=== PATIENT | male | born 1990 | race Caucasian/White ===

== ENCOUNTER 2017-11-03 12:28 | Emergency (ER) | payer OTHER ==
[~2017-11-03] VITALS: Ht 162.6 cm; Wt 65.8 kg
[2017-11-03] MEDS ORDERED: SKELAXIN 800 M800 M1 PO (14:21)
== END 2017-11-03 14:35 | disposition home or self-care (01) ==
LOC: ER 12:28
DX: M54.5 Low back pain (principal); F17.210 Nicotine dependence, cigarettes, uncomplicated; Z98.890 Other specified postprocedural states

== ENCOUNTER 2021-10-11 21:52 | Emergency (ER) | payer OTHER ==
[~2021-10-11] VITALS: Ht 162.6 cm; Wt 75.3 kg
[~2021-10-11 21:52] MED LIST: SKELAXIN 800 M800 M1 PO
[2021-10-11] MEDS ORDERED: CYCLOSPORINE50 MG PO (22:36)
[2021-10-11] MEDS ORDERED: SYNTHROID50 MCG PO (22:36)
[2021-10-11] MEDS ORDERED: CELCEPT PO (22:36)
[2021-10-12] MEDS ORDERED: CEPHALEXIN500 MG PO (00:36)
[2021-10-12 00:45] VITALS: BP 113/76
== END 2021-10-12 00:45 | disposition home or self-care (01) ==
LOC: ER 21:52
DX: S61.212A Laceration without foreign body of right middle finger without damage to nail, initial encounter (principal); F17.210 Nicotine dependence, cigarettes, uncomplicated; F12.90 Cannabis use, unspecified, uncomplicated; Z94.4 Liver transplant status; Z79.899 Other long term (current) drug therapy; Z88.2 Allergy status to sulfonamides; W25.XXXA Contact with sharp glass, initial encounter; Y93.89 Activity, other specified; Y92.89 Other specified places as the place of occurrence of the external cause; Y99.8 Other external cause status

== ENCOUNTER 2021-10-23 22:32 | Emergency (ER) | payer OTHER ==
[~2021-10-23] VITALS: Ht 165.1 cm; Wt 72.6 kg
[~2021-10-23 22:32] MED LIST changes: +CELCEPT PO; +CEPHALEXIN500 MG PO; +CYCLOSPORINE50 MG PO; +SYNTHROID50 MCG PO
[2021-10-23 23:43] VITALS: BP 151/76
== END 2021-10-23 23:45 | disposition home or self-care (01) ==
LOC: ER 22:32
PROVIDERS: Physician Assistant
DX: S61.212D Laceration without foreign body of right middle finger without damage to nail, subsequent encounter (principal); Z20.822 Contact with and (suspected) exposure to COVID-19; F17.210 Nicotine dependence, cigarettes, uncomplicated; F12.90 Cannabis use, unspecified, uncomplicated; Z79.899 Other long term (current) drug therapy; Z88.2 Allergy status to sulfonamides; X58.XXXD Exposure to other specified factors, subsequent encounter